=== PATIENT | male | born 1990 | race Hispanic/Latino ===

== ENCOUNTER 2017-04-16 19:15 | Emergency (ER) | payer OTHER ==
[2017-04-16 20:03] VITALS: BP 134/87; PULSE 52; RESP 16; TEMP 98.7; O2SAT 98
--- NOTE | 2017-04-16 20:27 | ED PDOC ---
HPI: Headache Time Seen by Provider: 04/16/17 20:17 Chief Complaint (Nursing): Headache Chief Complaint (Provider): Headache History Per: Patient History/Exam Limitations: no limitations Onset/Duration Of Symptoms: Days Current Symptoms Are (Timing): Still Present Quality: "Pain" Additional History Per: Patient Additional Complaint(s): The patient is a 26yo male, presents to the ED for evaluation of a headache and neck pain, present for the past 3 days. Patient states he was playing basketball and he fell backwards, landing on his head. Patient states he went to an urgent clinic yesterday and was told everything was ok. Patient states he presents today because he "feels off". He denies any blurry vision, loss of consciousness and offers no additional medical complaints. Past Medical History Reviewed: Historical Data, Nursing Documentation, Vital Signs Vital Signs: Last Vital Signs Temp 98.7 F 04/16/17 20:00 Pulse 52 L 04/16/17 20:00 Resp 16 04/16/17 20:00 BP 134/87 04/16/17 20:00 Pulse Ox 98 04/16/17 20:00 - Medical History PMH: No Chronic Diseases - Surgical History Surgical History: No Surg Hx - Family History Family History: States: No Known Family Hx - Home Medications Home Medications: Ambulatory Orders Medication Instructions Recorded oxyCODONE/Acetaminophen [Percocet 1 ea PO Q6H PRN #15 tab 04/16/17 5/325 mg Tab] - Allergies Allergies/Adverse Reactions: Allergies Allergy/AdvReac Type Severity Reaction Status Date / Time No Known Allergies Allergy Verified 04/16/17 20:00 Review of Systems Eyes: Negative for: Vision Change Musculoskeletal: Positive for: Neck Pain Neurological: Positive for: Headache. Negative for: Dizziness, Other (loss of consciousness ) Physical Exam - Reviewed Nursing Documentation Reviewed: Yes Vital Signs Reviewed: Yes - Physical Exam Appears: Positive for: Non-toxic, No Acute Distress Head Exam: Positive for: ATRAUMATIC, NORMAL INSPECTION, NORMOCEPHALIC Skin: Positive for: Warm, Dry Eye Exam: Positive for: Normal appearance, EOMI, PERRL Neck: Positive for: Supple. Negative for: Normal (para-cervical tenderness) Respiratory: Negative for: Respiratory Distress Neurologic/Psych: Positive for: Alert, Oriented. Negative for: Motor/Sensory Deficits - ECG O2 Sat by Pulse Oximetry: 98 (RA) Pulse Ox Interpretation: Normal Medical Decision Making Medical Decision Making: Time: 2024 Impression: Headache s/p fall Plan: -- CT head -- CT C-Spine Reassess Time: 2052 CT Head IMPRESSION: Streak artifact limits evaluation of the skull base. No evidence of acute intracranial hemorrhage. Correlate clinically.Subcutaneous soft tissue swelling/scalp hematoma is noted in the left posterior parietal region. CT C-Spine IMPRESSION: No displaced fracture. Grade I anterolisthesis of C2 on C3. Mild Cervical straightening is present, which may be due to degenerative changes, cervical collar placement, positioning , muscular spasm or ligamentous injury. Correlate clinically. Results discussed with Dr. Ko Scribe Attestation: Documented by Kristen Jackson acting as a scribe for DERIC Hendrickson Provider Attestation: All medical record entries made by the Scribe were at my direction and personally dictated by me. I have reviewed the chart and agree that the record accurately reflects my personal performance of the history, physical exam, medical decision making, and the department course for this patient. I have also personally directed, reviewed, and agree with the discharge instructions and disposition. Disposition - Clinical Impression Clinical Impression: Anterolisthesis, Head injury - Patient ED Disposition Is Patient to be Admitted: No Counseled Patient/Family Regarding: Diagnosis, Need For Followup, Rx Given - Disposition Referrals: Nima Peck III, MD [Staff Provider] - Disposition: Routine/Home Disposition Time: 21:27 Condition: STABLE Additional Instructions: Please follow-up with orthopedics. Prescriptions: oxyCODONE/Acetaminophen [Percocet 5/325 mg Tab] 1 ea PO Q6H PRN #15 tab PRN Reason: Pain, Severe (8-10) Instructions: Cervical Strain (GEN) Forms: [employer] ([place]ian)
--- NOTE | 2017-04-17 08:25 | CT ---
PROCEDURE: CT HEAD WITHOUT CONTRAST. HISTORY: head injury, headache COMPARISON: None available. TECHNIQUE: Axial computed tomography images were obtained through the head/brain without intravenous contrast. Radiation dose: Total exam DLP = 858.35 mGy-cm. This CT exam was performed using one or more of the following dose reduction techniques: Automated exposure control, adjustment of the mA and/or kV according to patient size, and/or use of iterative reconstruction technique. FINDINGS: HEMORRHAGE: No intracranial hemorrhage. BRAIN: No mass effect or edema. No atrophy or chronic microvascular ischemic changes. VENTRICLES: Unremarkable. No hydrocephalus. CALVARIUM: Unremarkable. PARANASAL SINUSES: Unremarkable as visualized. No significant inflammatory changes. MASTOID AIR CELLS: Unremarkable as visualized. No inflammatory changes. OTHER FINDINGS: None. IMPRESSION: No evidence of acute intracranial hemorrhage intracranial collection mass effect or midline shift. Preliminary report was submitted by [facility].
--- NOTE | 2017-04-17 08:47 | CT ---
PROCEDURE: CT Cervical Spine without contrast HISTORY: Status post fall, neck pain COMPARISON: None available. TECHNIQUE: Axial computed tomography images were obtained of the cervical spine without the use of intravenous contrast. Coronal and sagittal reformatted images were created and reviewed. Radiation dose: Total exam DLP = 495.97 mGy-cm. This CT exam was performed using one or more of the following dose reduction techniques: Automated exposure control, adjustment of the mA and/or kV according to patient size, and/or use of iterative reconstruction technique. FINDINGS: VERTEBRAE: No fracture. No destructive bony lesion. There is straightening of the cervical spine which could be positional or due to muscle spasm. There is a slight approximately to millimeter anterior spondylolisthesis of C2 relative to C3 noted. DISCS/SPINAL CANAL/NEURAL FORAMINA: Mild degenerative disc and endplate changes noted. No significant central canal or neural foraminal stenosis. Discs heights are grossly preserved. PARASPINAL SOFT TISSUES: Unremarkable. OTHER FINDINGS: None. IMPRESSION: No evidence of acute fracture or subluxation. Slight approximately 2 millimeter grade 1 anterior spondylolisthesis of C2 relative to C3. Straightening of the cervical spine which could be due to cervical collar placement, positioning or muscle spasm. Preliminary report was submitted by [facility].
== END 2017-04-16 21:37 | disposition home or self-care (01) ==
LOC: H.ER 19:15
DX: S00.03XA Contusion of scalp, initial encounter (principal); W22.8XXA Striking against or struck by other objects, initial encounter; Y93.67 Activity, basketball